=== PATIENT | male | born 1985 | race Caucasian/White ===

== ENCOUNTER 2025-03-17 06:48 | Emergency (ER) | payer BC, MEDICAID, SELFPAY ==
--- NOTE | 2025-03-17 | XR_ITS ---
EXAMINATION: MR cervical spine wo con ORDERING PROVIDER: Monica Jha MD HISTORY: neck pain, paresthesias TECHNIQUE: Multiplanar multisequence magnetic resonance images were obtained of the cervical spine without contrast. COMPARISON: 03/17/2025, CT cervical spine. 08/07/2022, MR cervical spine. FINDINGS: VERTEBRAE: No acute fracture or dislocation. ALIGNMENT: Normal. MARROW SIGNAL: Normal. Limited evaluation of C5 and C6 due to metallic susceptibility. INTERVERTEBRAL DISCS: C5-C6 disc arthroplasty changes. Decreased T2 signal C2-C5 and C6-C7. Decreased disc height C6-C7. SPINAL CORD: Limited evaluation at C5-C6 due to metallic susceptibility. Otherwise, normal signal. CRANIOCERVICAL JUNCTION: Normal. PARTIALLY EVALUATED POSTERIOR FOSSA: Normal. PARASPINAL SOFT TISSUES: Normal. BY LEVEL: C2-C3: Mild degenerative disc. Widely patent neural foramina and central canal. Very mild right greater than left facet arthrosis. Trace uncovertebral hypertrophy. C3-C4: Mild degenerative disc disease. Very mild bilateral neuroforaminal and posterior central canal narrowing on the basis of uncovertebral hypertrophy and very subtle broad-based disc prominence. Trace right greater than left facet arthrosis. C4-C5: Mild degenerative disc disease. Very mild bilateral neuroforaminal and posterior central canal narrowing on the basis of uncovertebral hypertrophy and very subtle broad-based disc prominence. Trace right greater than left facet arthrosis. C5-C6: Disc arthroplasty changes. Limited evaluation due to susceptibility artifact. No high-grade neuroforaminal stenosis identified. Trace bilateral facet arthrosis. C6-C7: Large posterior disc protrusion extending from left central across the right neuroforamina asymmetric toward the right. This appears to contact the exiting and transiting nerve moderate central and right neuroforaminal narrowing. Trace left neuroforaminal narrowing. Mild bilateral facet arthrosis. C7-T1: Normal. IMPRESSION: 1. C6-C7 large disc protrusion asymmetric toward the right which appears to contact the exiting and transiting nerve roots. Query right C7 and C8 radicular symptoms. 2. C5-C6 disc arthroplasty changes.
[2025-03-17 06:49] VITALS: BMI 24.3
[2025-03-17 07:02] VITALS: BP 134/89; PULSE 85; RESP 18; TEMP 36.6; O2SAT 98
--- NOTE | 2025-03-17 07:06 | XR_ITS ---
Examination: CT cervical spine without contrast 2-D sagittal reconstructions 2-D coronal reconstructions 3-D reconstructions. Exam date and time: March 17, 2025, 0730 hours INDICATIONS: Neck pain 3 months worse today, neck surgery 2022 CTDI:vol (mGy) 15.4 DLP: (mGycm) 364 Technique: Multiple 2 mm axial sections of the cervical spine have been obtained. The coronal and sagittal reconstructions have been obtained. 3-D reconstructions have been obtained. Low dose protocols were performed. One or more of the following dose reduction techniques were used; automated exposure control, adjustment of the mA and/or KV according to patient size, use of iterative reconstruction technique. Findings: Axial sections demonstrate intact base of the skull. C1 exhibit satisfactory relationship to the odontoid. No acute cervical vertebral body fracture seen. Alignment posterior spinous processes satisfactory. Artificial disc C5-C6: No focal disc protrusion Impression: No acute cervical fracture. As clinically warranted, MRI cervical spine without contrast follow-up would best assess for soft tissue disc protrusion
--- NOTE | 2025-03-17 07:07 | PD.EDRME ---
Rapid Medical Screening Exam [facility] Arrival date/time: 03/17/25 06:48 39-year-old male with a history of surgery to his spine presents to the emergency room with a chief complaint of cervical neck tenderness that radiates down to the right scapular area x 1 week I have greeted and performed a focused initial assessment of this patient. A comprehensive ED assessment and evaluation of the patient, analysis of all test results, and completion of the medical decision making process will be conducted by additional ED providers. Chief Complaint: Neck Pain/Injury Time Seen by Provider: 03/17/25 06:53 Vital signs: Vital Signs Temperature 97.8 F 03/17/25 07:02 Pulse Rate 85 03/17/25 07:02 Respiratory Rate 18 03/17/25 07:02 Blood Pressure 134/89 H 03/17/25 07:02 Pulse Oximetry (%) 98 03/17/25 07:02 Oxygen Delivery Method Room Air 03/17/25 07:02 Vital signs reviewed by provider: Yes Exam: Cervical spine tenderness with palpation. The patient has limited range of motion to his right side Clear bilateral lung sounds strong and regular rhythm. Clinical Impression: Disc bulge/cervical spine pain
[2025-03-17] MEDS: KETOROLAC INJ 60 MG/2 ML VIAL 30 MG IM (07:20)
[2025-03-17 07:42] LABS: Basophils # (Auto) 0.0 Thou/mm3 (0.0-0.2); Basophils % (Auto) 1 % (0-2.5); Eosinophils # (Auto) 0.1 Thou/mm3 (0.0-0.5); Eosinophils % (Auto) 1 % (0-10); Hematocrit 42.0 % (41.0-53.0); Hemoglobin 14.9 g/dL (13.5-16.0); Immature Granulocytes Auto 0.00 Thou/mm3 (0.00-0.00); Lymphocytes # (Auto) 1.9 Thou/mm3 (1.0-4.8); Lymphocytes % (Auto) 39 % (10-50); Mean Corpuscular HGB Conc 35.5 g/dl (31.0-37.0); Mean Corpuscular Hemoglobin 33.0 pg (25.0-35.0); Mean Corpuscular Volume 93 fL (80-100); Monocytes # (Auto) 0.4 Thou/mm3 (0.0-0.8); Monocytes % (Auto) 8 % (0-12); Neutrophils # (Auto) 2.5 Thou/mm3 (1.8-7.7); Neutrophils % (Auto) 51 % (37-80); Nucleated Red Blood Cell # 0.00 Thou/mm3 (0.00-0.00); Nucleated Red Blood Cell % 0 /100 WBC (0); Platelet Count 213 Thou/mm3 (140-440); RDW Standard Deviation 41.7 fL (35.1-43.9); Red Blood Count 4.51 Miln/mm3 (4.50-5.90); White Blood Count 4.9 Thou/mm3 (3.8-10.6)
--- NOTE | 2025-03-17 07:50 | EDNOTE_ITS ---
ED Neck Injury Pain RME/HPI General Chief Complaint: Neck Pain/Injury Stated Complaint: NECK PAIN THAT RADIATES TO RIGHT ARM Time Seen by Provider: 03/17/25 06:53 Arrival date/time: 03/17/25 06:48 Limitations: no limitations RME / HPI RME / HPI Narrative: 03/17/25 06:48 39-year-old male with a history of surgery to his spine presents to the emergency room with a chief complaint of cervical neck tenderness that radiates down to the right scapular area x 1 week I have greeted and performed a focused initial assessment of this patient. A comprehensive ED assessment and evaluation of the patient, analysis of all test results, and completion of the medical decision making process will be conducted by additional ED providers. DR. GENNARO OLIVER ED EVALUATION 39 year old male with history of C5-C6 cervical disc replacement surgery performed by Dr. Tashi Hernandez on 01/02/2023 at [facility] presents to the ED for evaluation of neck pain. Patient reports neck pain on and off for several months that is rated 5/10 in severity. However, pain became increasingly worse this morning, now rated 10/10 in severity. Located most to the right side of neck, right shoulder blade, right shoulder, and right arm. Accompanied by nausea he attributes to the pain and numbness to the radial distribution of the right arm. Patient states he took Tylenol and Toradol at home with no change. Denies any injury or trauma. Denies heavy lifting. Patient mentioned he had consulted with neurosurgeon Dr. Hernandez several months ago and was referred to have physical therapy for the pain. States he underwent physical therapy with no improvement. Denies any fevers, chills, or weakness to the right upper extremity. Exam: Cervical spine tenderness with palpation. The patient has limited range of motion to his right side Clear bilateral lung sounds strong and regular rhythm. Impression: Disc bulge/cervical spine pain Related Data Previous Rx's ?Medication ?Instructions ?Recorded hydrocodone 5 mg-acetaminophen 325 1 tab PO BID PRN pa in #10 tabs 12/03/22 mg tablet ibuprofen 800 mg tablet 800 mg PO Q8H PRN pain #7 ta bs 03/17/25 lidocaine 4 % topical patch 1 patch topical QDAY PRN p ain #5 ea 03/17/25 naloxone 4 mg/actuation nasal 4 mg intranasal Q2M PRN opioid 03/17/25 spray (Narcan) overdose #2 ea Allergies Allergy/AdvReac Type Severity Reaction Status Date / Time Penicillins Allergy Severe UNKNOWN Verified 12/03/22 17:47 Review of Systems Review of Systems Systems Reviewed: All systems reviewed, normal except as documented Past Medical History Past Medical History MUSCULOSKELETAL: Positive Musculoskeletal Disorders (neck surgery with disc placement) Social History SMOKING STATUS: Never smoker ED Exam General Limitations: Present no limitations General appearance: Present alert and other (appears to be in pain ) Head Head exam: Present atraumatic Eye Eye exam: Present normal appearance, PERRL and EOMI ENT ENT exam: Present normal exam, normal oropharynx and mucous membranes moist Neck Neck exam: Present normal inspection, full ROM and trachea midline Chest Chest inspection: Present normal inspection and symmetric chest wall rise Respiratory Respiratory exam: Present normal lung sounds bilaterally Cardiovascular Cardiovascular exam: Present regular rate, normal rhythm and normal heart sounds Extremities Exam Extremities exam: Present other (Tenderness to palpation at the right lateral neck, numbness appreciated at the right thumb, intact sensation to the rest of the arm, 5/5 strength, intact skin ) Back Exam Back exam: Present normal inspection and full ROM Neurological Exam Neurological exam: Present alert, oriented X3 and CN II-XII intact Psychiatric Psychiatric exam: Present normal affect and normal mood Skin Skin exam: Present warm, dry, intact and normal color Course Quality Measures none Orders Category Date Time Status MRI Screening NOW Care 03/17/25 08:[address] cervical spine wo con Stat Exams 03/17/25 07:06 Completed MR cervical spine wo con Stat Exams 03/17/25 Completed CBC Stat Lab 03/17/25 07:20 Completed CMP [Comprehensive Metabolic Panel] Stat Lab 03/17/25 07:20 Completed CRP [C-Reactive Protein] Stat Lab 03/17/25 07:20 Completed ESR [Sed Rate (ESR)] Stat Lab 03/17/25 07:20 Completed PT [Prothrombin Time with INR] Stat Lab 03/17/25 07:20 Completed PTT [Partial Thromboplastin Time] Stat Lab 03/17/25 07:20 Completed UA, C/S IF [Urinalysis, C/S if Indicated] Stat Lab 03/17/25 07:50 Completed HYDROmorphone INJ [Dilaudid Inj] Med 03/17/25 09:15 Discontinued 1 mg IVP X1 ONE HYDROmorphone INJ [Dilaudid Inj] Med 03/17/25 10:41 Discontinued 1 mg IVP X1 ONE Ketorolac Inj [Toradol Inj] Med 03/17/25 07:06 Discontinued 30 mg IM X1 ONE Morphine* Inj Med 03/17/25 08:13 Discontinued 4 mg IVP STAT STA Ondansetron Inj [Zofran Inj] Med 03/17/25 08:14 Discontinued 4 mg IVP X1 ONE oxyCODONE/APAP 5/325 [Percocet 5/325] Med 03/17/25 12:03 Discontinued 1 tab PO X1 ONE Vital Signs Vital signs: Vital Signs Temperature 97.8 F 03/17/25 07:02 Pulse Rate 85 03/17/25 07:02 Respiratory Rate 18 03/17/25 07:02 Blood Pressure 134/89 H 03/17/25 07:02 Pulse Oximetry (%) 98 03/17/25 07:02 Oxygen Delivery Method Room Air 03/17/25 07:02 Pulse ox is 98% on room air which is adequate. Neck Pain MDM Narrative MDM Narrative:: Katie Sunshine am scribing for and in the presence of Dr. Jha. Patient is a 39-year-old male into the emerged by concerns for right sided neck pain and arm pain. Vital signs and exam as listed. Concern for radiculopathy, disc herniation, muscle strain among others. Ordered CT of the cervical spine as well as labs and medication for symptom relief. Patient without any respiratory compromise, does have numbness along his right thumb however is strong in his extremity. CT cervical spine did not identify any acute abnormalities labs unremarkable. Ordered MRI of the spine of the cervical spine without contrast. Provided medication for symptom relief. 0830a: I called neurosurgeon Dr. Tashi Hernandez's office and they do not open until 08:30a. 0828a: I spoke with ROBBIE Lee at Dr. Tashi Hernandez's office. Discussed patients HPI, ED course, exam findings, and radiology results. States they had placed an order for MRI cervical spine but the request was denied by the insurance due missing physical therapy. States the patient had only 1 round of physical therapy and noted the pain to have worsened. She is requesting we perform an MRI today and call back with the results. States if the patient needs to be transferred, will need to go through the transfer center. 0914a: Made aware by RN the patient is complaining of 10/10 pain. Received Toradol 30mg IM at 07:20a and Morphine 4mg IV at 08:35a with no improvement. Will order Dilaudid 1mg IV. 1040a: Made aware by RN the patient has 10/10 pain. Reports the pain was improved with Dilaudid and able to tolerate lying flat for the MRI. Will order second dose of Dilaudid 1mg IV. MRI with 1. C6-C7 large disc protrusion asymmetric toward the right which appears to contact the exiting and transiting nerve roots. Query right C7 and C8 radicular symptoms. 2. C5-C6 disc arthroplasty changes. 1130a: I spoke with ROBBIE Lee at Dr. Tashi Hernandez's office. Discussed MRI findings. No emergent surgical intervention, no need to transfer to [facility] at this time. She recommends the patient go home with a copy of the MRI and CT discs. State they will be able to see him in their office this upcoming week. 1132a: Had a long discussion about the treatment plan and recommendations from Dr. Hernandez's office with patient and mother. States his pain is significantly improved. He is nervous about having the pain at home . I told him that I could send him home with short course of pain medication however it is important that he establish care with a pain specialist as well as a physical therapist that he has a good relationship with for ongoing management of his pain. I told him that if his pain gets worse or he has any other symptom of concern he can return immediately to the emergency room. Patient in agreement and is reassured. Patient data External records reviewed:: [facility] previous records Clinical information provided by:: patient Social determinants that could affect healthcare access:: none Patient has the following chronic illnesses:: C5-C6 cervical disc replacement surgery performed by Dr. Tashi Hernandez on 01/02/2023 at [facility] How is presenting disease/condition affected by chronic disease/condition?: exacerbated by Evaluation data The following diagnostics were reviewed and interpreted by me:: lab results and radiology exam(s) Lab and/or radiology exams considered but not ordered:: None Interpretation Summary: Ordering Physician: Sedrick Bellamy Date of Service: 03/17/25 Procedure(s): CT cervical spine wo con Accession Number(s): [id number] cc: Sedrick Bellamy; Chidi Roy MD; Anna Burch PA-C~ Examination: CT cervical spine without contrast 2-D sagittal reconstructions 2-D coronal reconstructions 3-D reconstructions. Exam date and time: March 17, 2025, 0730 hours INDICATIONS: Neck pain 3 months worse today, neck surgery 2022 CTDI:vol (mGy) 15.4 DLP: (mGycm) 364 Technique: Multiple 2 mm axial sections of the cervical spine have been obtained. The coronal and sagittal reconstructions have been obtained. 3-D reconstructions have been obtained. Low dose protocols were performed. One or more of the following dose reduction techniques were used; automated exposure control, adjustment of the mA and/or KV according to patient size, use of iterative reconstruction technique. Findings: Axial sections demonstrate intact base of the skull. C1 exhibit satisfactory relationship to the odontoid. No acute cervical vertebral body fracture seen. Alignment posterior spinous processes satisfactory. Artificial disc C5-C6: No focal disc protrusion Impression: No acute cervical fracture. As clinically warranted, MRI cervical spine without contrast follow-up would best assess for soft tissue disc protrusion Dictated By: Chidi Roy MD Signed By: <Electronically signed by Chidi Roy MD in OV> 03/17/25 0804 Ordering Physician: Monica Jha MD Date of Service: 03/17/25 Procedure(s): MR cervical spine wo con Accession Number(s): [id number] cc: Tashi Carroll MD; Monica Jha MD; Anna Burch PA-C~ EXAMINATION: MR cervical spine wo con ORDERING PROVIDER: Monica Jha MD HISTORY: neck pain, paresthesias TECHNIQUE: Multiplanar multisequence magnetic resonance images were obtained of the cervical spine without contrast. COMPARISON: 03/17/2025, CT cervical spine. 08/07/2022, MR cervical spine. FINDINGS: VERTEBRAE: No acute fracture or dislocation. ALIGNMENT: Normal. MARROW SIGNAL: Normal. Limited evaluation of C5 and C6 due to metallic susceptibility. INTERVERTEBRAL DISCS: C5-C6 disc arthroplasty changes. Decreased T2 signal C2-C5 and C6-C7. Decreased disc height C6-C7. SPINAL CORD: Limited evaluation at C5-C6 due to metallic susceptibility. Otherwise, normal signal. CRANIOCERVICAL JUNCTION: Normal. PARTIALLY EVALUATED POSTERIOR FOSSA: Normal. PARASPINAL SOFT TISSUES: Normal. BY LEVEL: C2-C3: Mild degenerative disc. Widely patent neural foramina and central canal. Very mild right greater than left facet arthrosis. Trace uncovertebral hypertrophy. C3-C4: Mild degenerative disc disease. Very mild bilateral neuroforaminal and posterior central canal narrowing on the basis of uncovertebral hypertrophy and very subtle broad-based disc prominence. Trace right greater than left facet arthrosis. C4-C5: Mild degenerative disc disease. Very mild bilateral neuroforaminal and posterior central canal narrowing on the basis of uncovertebral hypertrophy and very subtle broad-based disc prominence. Trace right greater than left facet arthrosis. C5-C6: Disc arthroplasty changes. Limited evaluation due to susceptibility artifact. No high-grade neuroforaminal stenosis identified. Trace bilateral facet arthrosis. C6-C7: Large posterior disc protrusion extending from left central across the right neuroforamina asymmetric toward the right. This appears to contact the exiting and transiting nerve moderate central and right neuroforaminal narrowing. Trace left neuroforaminal narrowing. Mild bilateral facet arthrosis. C7-T1: Normal. IMPRESSION: 1. C6-C7 large disc protrusion asymmetric toward the right which appears to contact the exiting and transiting nerve roots. Query right C7 and C8 radicular symptoms. 2. C5-C6 disc arthroplasty changes. Dictated By: Tashi Carroll MD Signed By: <Electronically signed by Tashi Carroll MD in OV> 03/17/25 1118 Medications / Prescriptions Medications or Prescriptions considered but not ordered:: None Medication administrations:: Medication Administration History Discontinued Medications Hydromorphone HCl (Hydromorphone Inj 2 Mg/Ml Vial) 1 mg IVP X1 ONE Stop: 03/17/25 09:16 Last Admin: 03/17/25 09:26 Dose: 1 mg Documented By: KM Hydromorphone HCl (Hydromorphone Inj 2 Mg/Ml Vial) 1 mg IVP X1 ONE Stop: 03/17/25 10:42 Last Admin: 03/17/25 10:51 Dose: 1 mg Documented By: JOHN Ketorolac Tromethamine (Ketorolac Inj 60 Mg/2 Ml Vial) 30 mg IM X1 ONE Stop: 03/17/25 07:07 Last Admin: 03/17/25 07:20 Dose: 30 mg Documented By: RIOS Morphine Sulfate (Morphine Sulf Inj 4 Mg/Ml Vial) 4 mg IVP STAT STA Stop: 03/17/25 08:14 Last Admin: 03/17/25 08:35 Dose: 4 mg Documented By: DANIEL Ondansetron HCl (Ondansetron Inj 2 Mg/Ml Inj 2 Ml) 4 mg IVP X1 ONE; Protocol Stop: 03/17/25 08:15 Last Admin: 03/17/25 08:35 Dose: 4 mg Documented By: DANIEL Oxycodone/Acetaminophen (Oxycodone/Apap 5/325 Tablet) 1 tab PO X1 ONE Stop: 03/17/25 12:04 Last Admin: 03/17/25 12:13 Dose: 1 tab Documented By: RIOS See above Consultations Consultation(s) initiated? (list below): Yes Consultation #1 (Physician, Specialty, Details): See MDM Diagnosis Neck Differential Diagnosis: disc disorder of cervical region, closed sublu xation of cervical spine, cervical radiculopathy, cervical spondylosis and strain of neck muscle Most likely diagnosis given after review of the tests above:: Neck pain Admission Indicated Admission indicated?: not indicated Admission Request Was there a request for admission?: No Disposition Plan Disposition Plan: Discharge Discharge Attestation Discharge Attestation: The patient and all family members were given an opportunity to ask questions and understood the discharge instructions. Discharge instructions specifically effects, indications for sooner follow up or return to the emergency department, and the expected course of current diagnosis. Patient condition: Stable Discharge Plan Plan Patient Disposition: HOME (Self Care) Prescriptions/Referrals Prescriptions/Med Rec: New naloxone [Narcan] 4 mg/actuation spray,non-aerosol 4 mg intranasal Q2M PRN (Reason: opioid overdose) Qty: 2 0RF Rx Instructions: spray 1 dose into ONE nostril; alternate nostrils w each dose until help arrives lidocaine 4 % adhesive patch,medicated 1 patch topical QDAY PRN (Reason: pain) Qty: 5 0RF ibuprofen 800 mg tablet 800 mg PO Q8H PRN (Reason: pain) Qty: 7 0RF No Action hydrocodone-acetaminophen 5-325 mg tablet 1 tab PO BID MDD 2 PRN (Reason: pain) Qty: 10 0RF Referrals: Anna Burch PA-C [Primary Care Provider, Family Practice] - In 1 week Problem List Clinical Impression: Neck pain Patient/Caregiver Discharge Instructions Additional Instructions: I reassured that your symptoms responded to pain medication however it is important that you follow-up with Dr. Hernandez to discuss a long-term plan with regards to the management of your neck pain. He wants to see you in clinic in the upcoming week. Your MRI today showed a C6-C7 large disc protrusion that is contacting your nerve roots. This is likely with causing your symptoms today. I also recommend that you establish care with a pain specialist and you trial a different physical therapist to find the right providers that will help you with a long-term plan for healing Print Language: Hungarian Stand Alone Forms: Lynne Award Info., Work/School Release, Patient Portal Info Letter
--- NOTE | 2025-03-17 08:03 | PC.NURSE ---
Patient from [facility] and taken to room 19, Dr. Jha at bedside to evaluate patient. Patient to er with c/o neck, right back radiating down right arm, patient states pain worse this am when he woke up at 0500 this am. Patient has h/o neck surgery. Patient states no relief of pain from ibuprofen he took this am and toradol given in the ER. Patient states he feels worse. Dr. Jha is aware.
[2025-03-17 08:05] LABS: Collection Type, Urine Clean Catch; Squamous Epithelial Cell,Urine 0 /hpf (0-5)
[2025-03-17 08:09] LABS: INR 1.0 (0.9-1.3); Partial Thromboplastin Time 27.3 Seconds (22.0-36.0); Prothrombin Time 10.6 Seconds (9.0-12.2)
[2025-03-17 08:12] LABS: Alanine Aminotransferase 15 U/L (10-49); Albumin, Serum 4.6 gm/dL (3.5-5.0); Albumin/Globulin Ratio 1.9 (1.2-2.2); Anion Gap 8 (7-16); Aspartate Amino Transferase 24 U/L (0-34); BUN/Creatinine Ratio 10 Ratio (12-20); Bilirubin,Total 0.4 mg/dL (0.3-1.2); Blood Urea Nitrogen 11 mg/dL (9-23); Calcium 9.8 mg/dL (8.3-10.6); Calcium (Corrected) 9.8 mg/dL (8.5-10.1); Carbon Dioxide 27.7 mMol/L (20.0-31.0); Chloride 106 mMol/L (98-107); Creatinine (Component) 1.1 mg/dL (0.6-1.3); Estimated Creatinine Clearance 92.2 mL/min (>60); Globulin 2.4 gm/dL (2.3-3.5); Glucose 89 mg/dL (74-106); Osmolality,Calculated 281 (275-295); Potassium 4.2 mMol/L (3.4-5.1); Sodium 142 mMol/L (136-145); Total Protein 7.0 gm/dL (5.7-8.2); eGFR > 60 See Note
[2025-03-17 08:19] LABS: Bilirubin,Urine Negative (Negative); Blood,Urine Negative (Negative); Clarity,Urine Clear (Clear/Hazy); Color,Urine Lt-Yellow (Lt Yel-Yel); Culture Indicated,Urine Not Indicated; Glucose, Urine Negative (Negative); Ketones,Urine Negative (Negative); Leukocyte Esterase,Urine Negative (Negative); Nitrite,Urine Negative (Negative); PH,Urine 7.0 (5.0-7.0); Protein,Urine Negative (Neg - Trace); RBC,Urine 1 /hpf (0-3); Specific Gravity,Urine 1.019 (1.001-1.035); Urobilinogen,Urine Negative mg/dL (0.0-1.0); WBC,Urine < 1 /hpf (0-5)
[2025-03-17] MEDS: ONDANSETRON INJ 2 MG/ML INJ 2 ML 4 MG IVP (08:35)
[2025-03-17] MEDS: MORPHINE SULF INJ 4 MG/ML VIAL IVP (08:35)
[2025-03-17 08:40] VITALS: BP 142/94; PULSE 96; RESP 16; TEMP 36.9; O2SAT 97
--- NOTE | 2025-03-17 09:13 | PC.NURSE ---
Patient states Morphine iv did not help with his pain, states pain to neck, right shoulder and arm 01/30 at this time, will notify Dr. Jha.
[2025-03-17] MEDS: HYDROmorphone INJ 2 MG/ML VIAL 1 MG IVP ×2 (09:26→10:51)
--- NOTE | 2025-03-17 09:27 | PC.NURSE ---
Called MRI, spoke with Sachi informed her patient ready for exam. patient concerned about sitting in wheelchair, informed him that he was given morphine and dilaudid for pain, which could make him dizzy, therefore, encouraging patient to go via wheelchair for his safety, patient states he will try.
[2025-03-17 09:32] LABS: Alkaline Phosphatase 40 U/L (46-116)
[2025-03-17 09:45] LABS: C-Reactive Protein < 0.5 mg/dL (0.0-0.9)
[2025-03-17 10:17] LABS: Sed Rate (ESR) 1 mm/hr (0-15)
[2025-03-17 10:54] VITALS: BP 117/65; PULSE 88; RESP 16; O2SAT 95
== END 2025-03-17 12:19 | disposition home or self-care (01) ==
PROVIDERS: Nurse Practitioner Family; Emergency Provider Emergency Medicine; PCP Physician Assistant
DX: M50.223 Other cervical disc displacement at C6-C7 level (principal)
CPT/HCPCS: 36415; 72125; 72141; 80053; 81001; 85025; 85610; 85652; 85730; 86140; 96372; 96374; 96375; 96376; 99284; J1171; J1885; J2270; J2405; A9270